=== PATIENT | female | born 2000 | race Caucasian/White ===

== ENCOUNTER 2023-12-07 11:05 | Emergency (ER) | payer SELFPAY ==
[2023-12-07 11:11] VITALS: BP 137/75; PULSE 125; RESP 18; TEMP 37; O2SAT 100
--- NOTE | 2023-12-07 11:44 | ED.DIZZY ---
HPI - Dizziness General Chief Complaint: Dizziness Stated Complaint: dizzy/blurry eyes/chest hurting Time Seen by Provider: 12/07/23 11:09 Source: patient Mode of arrival: ambulatory Limitations: no limitations History of Present Illness HPI Narrative: Patient is a 22-year-old female who presents with 4 days of worsening dizziness, blurred vision. Patient states she was at work when symptoms started. Does have a history of anxiety but states this is not help her typical anxiety or anxiety attacks feel. Patient also reports chest tightness started last night and still present this morning but has lessened. Denies having any episodes of hyperventilation or syncope. Denies any numbness, tingling or weakness to extremities. Has not taken anything for symptoms. Does also report having sore throat last night but has resolved today. Related Data Home Medications Medication Instructions Recorded Confirmed hydroxyzine HCl 10 mg tablet 10 mg PO Q6H PRN Anxiety 12/07/23 12/07/23 sertraline 25 mg tablet 25 mg PO DAILY 12/07/23 12/07/23 Allergies Allergy/AdvReac Type Severity Reaction Status Date / Time No Known Allergies Allergy Unknown Verified 12/07/23 11:50 Review of Systems Review of Systems: All systems reviewed & are unremarkable except as noted in HPI and below Constitutional: Constitutional: Denies body ache(s), Denies chills, Denies fatigue, Denies fever(s), Denies headache(s), Denies malaise and Denies weakness Eyes: Eyes: Denies blurry vision, Denies irritation and Denies loss of vision ENT: Denies otalgia, Denies headache(s), Denies nasal discharge, Denies sinus pain and Denies sore throat Cardiovascular: Cardiovascular: Reports chest pain, Denies irregular heart rhythm and Denies dyspnea Respiratory: Respiratory: Denies dyspnea Gastrointestinal: Gastrointestinal: Denies abdominal pain, Denies melena, Denies hematochezia, Denies diarrhea, Denies nausea and Denies vomiting Musculoskeletal: Musculoskeletal: Denies back pain, Denies myalgias and Denies arthralgias Integumentary/Breasts: Skin/Breast: Denies pruritus and Denies rash Neurologic: Reports dizziness, Denies headache(s), Denies loss of vision and Denies weakness Psychiatric: Psychiatric: Reports no additional psychiatric complaints Endocrine: Endocrine: Denies fatigue PMFSH Comments At time of signature, agree with nursing past medical, surgical, social and family history. There is no relevant family history pertinent to the presenting complaint. Exam Const: General: cooperative, healthy appearing, comfortable, no acute distress and well nourished Nutritional Appearance: well nourished Orientation/consciousness: patient oriented x3 Limitations: no limitations HENMT: Head: normal to inspection, normocephalic and atraumatic Ears: hearing grossly normal bilaterally, external ears normal, TM's normal bilaterally and EAC's normal Face/Nose/Sinus: Normal external nose present, normal facial exam and face symmetric Face and sinus: normal facial exam and face symmetric Mouth: Yes Normal oral and palatal mucosa present, Yes lip normal, Yes tongue normal, Yes Normal salivary glands and ducts present, Yes oropharynx normal and Yes moist mucous membranes Teeth and gingiva: dentition normal Throat: posterior oropharynx normal, tonsils normal and uvula midline Eyes: General: appearance normal, both eyes and all related structures Alignment and Position: alignment normal and position normal Periorbital: periorbital findings normal Eyelids: eyelids normal Pupils: Equal, round and reactive pupils present EOM: EOMs intact bilaterally Neck: Neck: normal visual inspection, full ROM and supple Chest: Chest palpation & inspection: normal inspection of the chest Resp: Effort & Inspection: normal respiratory effort and able to speak in complete sentences Auscultation: clear to auscultation bilaterally, no crackles, no rales, no rhonchi and no wheezes Cardio:
== END 2023-12-07 11:50 | disposition short-term general hospital (02) ==
PROVIDERS: Emergency Provider Nurse Practitioner Family
DX: R42 Dizziness and giddiness (principal); R07.89 Other chest pain; H53.8 Other visual disturbances; F41.9 Anxiety disorder, unspecified; F32.A Depression, unspecified
CPT/HCPCS: 99213; G0463

== ENCOUNTER 2024-01-23 08:38 | Emergency (ER) | payer MEDICAID, SELFPAY ==
[2024-01-23 08:42] VITALS: BP 139/75; PULSE 109; RESP 18; TEMP 36.6; O2SAT 99
--- NOTE | 2024-01-23 08:51 | ED.FEMALEGU ---
HPI - Female Genitourinary General Chief complaint: Unspecified Stated complaint: cramping / spotting/ Time Seen by Provider: 01/23/24 08:53 Source: patient, RN notes reviewed and old records reviewed Mode of arrival: ambulatory Limitations: no limitations History of Present Illness HPI Narrative: 23 year old female who presents to [facility] with complaint of having normal period on January 14 lasting 4 days then started to have cramping and spotting again on the which continues.. Patient reports that she does not have a PCP or has never seen an [employer] physician. Patient reports that she has never had any problems with her periods before is regular, states has never been sexually active. Patient does report some lower back pain and some lower abdominal cramping, no McBurney point tenderness noted on examination. Patient denies any nausea or vomiting or episodes of diarrhea, denies any fevers, chills or sweats. Patient reports that she took dose of Ibuprofen on the only for her discomfort. Patient voices history of anxiety and depression and saw provider at [facility] in [place] was put on Sertraline which she states she has not taken routinely with last use at least a month ago, takes hydroxyzine for her anxiety episodes as needed. MD elicited complaint: other (cramping and spotting) Onset (ago): day(s) (day3 of symptoms) Location of symptoms: vaginal and other (lower abdominal cramping) Severity scale (1-10): 3 Quality of pain: cramping Vaginal bleeding: other (spotting bright red) Treatment prior to arrival: NSAIDs (X1) Sexual activity: No Date of Last Menstrual Period: 01/15/24 Related Data Home Medications Medication Instructions Recorded Confirmed hydroxyzine HCl 10 mg tablet 10 mg PO Q6H PRN Anxiety 12/07/23 01/23/24 sertraline 25 mg tablet 25 mg PO DAILY 12/07/23 01/23/24 Allergies Allergy/AdvReac Type Severity Reaction Status Date / Time No Known Allergies Allergy Unknown Verified 12/07/23 11:50 Review of Systems Review of Systems: CONSTITUTIONAL: Denies fever, chills, or sweats. CARDIOVASCULAR: Denies chest pain, palpitations, or edema. RESPIRATORY: Denies cough or dyspnea. GASTROINTESTINAL: Reports lower abdominal cramping,no nausea, vomiting, or diarrhea. GENITOURINARY: Reports no dysuria, frequency, urgency. Denies flank pain or hematuria. reports menstrual cramping with some vaginal spotting this day 3 of symptoms reports scant amounts SKIN: Denies rash or itching. MUSCULOSKELETAL: Reports lower back pain or myalgia. Denies CVA tenderness NEUROLOGIC: Denies headache All systems reviewed & are unremarkable except as noted in HPI and below PMFSH Past Medical History Medical History (Updated 01/23/24 @ 09:38 by Yesenia Carlisle NP) Anxiety Depression Social History Social History (Updated 01/23/24 @ 09:41 by Yesenia Carlisle NP) Smoking status: Never smoker Alcohol intake: current Alcohol use details: rare social Substance use type: does not use Living arrangements: with family Gender identity (if verbalized by the patient): Female Comments At time of signature, agree with nursing past medical, surgical, social and family history. There is no relevant family history pertinent to the presenting complaint Exam Narrative: GENERAL: Well-appearing, well-nourished, and in no acute distress. HEAD: Normocephalic, atraumatic. NECK: Supple.no lymphadenopathy CHEST: Clear to auscultation. No respiratory distress. SAO2 99% on room air HEART: Regular rate and rhythm. No murmur heard. Normal peripheral pulses. ABDOMEN: Soft, tender in lower abdomen described as cramping, No McBurney point tenderness, nondistended, normal active bowel sounds. No CVA tenderness, denies burning or frequency of urination. EXTREMITIES: Normal range of motion. No edema. SKIN: Warm, dry, no rash. NEURO: No focal deficits. Alert and oriented x3. Course Course Emergency Course: Patient is aware of
== END 2024-01-23 09:31 | disposition home or self-care (01) ==
PROVIDERS: Emergency Provider Registered Nurse
DX: N93.9 Abnormal uterine and vaginal bleeding, unspecified (principal); N94.6 Dysmenorrhea, unspecified; F41.9 Anxiety disorder, unspecified; F32.A Depression, unspecified
CPT/HCPCS: 81003; 99211; 99212; G0463

== ENCOUNTER 2024-02-10 10:02 | Outpatient (CLI) | payer MEDICAID, SELFPAY ==
--- NOTE | ~2024-02-10 | US_ITS ---
EXAMINATION: US pelvic complete DATE: 02/10/2024 10:21 INDICATION: Right lower quadrant pain TECHNIQUE: Multiple transabdominal outside sonographic images of the pelvis were obtained. COMPARISON: None. FINDINGS: The uterus measures 6.4 x 3.9 x 5.0 cm. The endometrial complex measures 9 mm in thickness. The righ t ovary measures 3.3 x 2.0 x 2.8 cm. The left ovary measures 2.6 x 2.0 x 2.5 cm. Vascular flow identi fied at both ovaries on color Doppler. There is no free fluid in the pelvis. IMPRESSION: 1. Normal pelvic ultrasound. Reviewed, dictated and finalized at location A.
== END 2024-02-10 10:03 ==
LOC: MICIMG 10:03
PROVIDERS: PCP Nurse Practitioner Women's Health; Visit Provider Nurse Practitioner Women's Health
DX: R10.31 Right lower quadrant pain (principal); N93.8 Other specified abnormal uterine and vaginal bleeding; R10.2 Pelvic and perineal pain
CPT/HCPCS: 76856

== ENCOUNTER 2024-08-20 11:50 | Emergency (ER) | payer OTHER, SELFPAY ==
[2024-08-20 11:54] VITALS: BP 121/79; PULSE 94; RESP 20; TEMP 36.9; O2SAT 100
[2024-08-20 12:17] LABS: EDCOVIDSCREEN Positive (Negative); EDINFLUASCREEN Negative (Negative); EDINFLUBSCREEN Negative (Negative)
--- NOTE | 2024-08-20 12:24 | ED_ITS ---
HPI - General Adult General Chief complaint: Upper Respiratory Infection Stated complaint: poss covid Time Seen by Provider: 08/20/24 12:10 Source: patient, RN notes reviewed and old records reviewed Mode of arrival: ambulatory Limitations: no limitations History of Present Illness HPI narrative: 23 year old female who presents to [facility] care with complaints of body aches, chills and sweats and some cough for the past 2 days, Patient reports that she awoke today with some left ear pain. Patient reports that she has not taken anything for her symptoms. She states that brother had COVID within the past 2 weeks. MD complaint: body aches, chills, ear pain Onset (ago): day(s) (2) Severity scale (1-10): 2 Quality: aching Treatments prior to arrival: none Related Data Home Medications ?Medication ?Instructions ?Recorded ?Confirmed ?Last Taken ?Type drospirenone 3 mg-ethinyl tablet 08/20/24 Unknown History estradiol 0.02 mg tablet (Lo-Zumandimine (28)) Allergies Allergy/AdvReac Type Severity Reaction Status Date / Time No Known Allergies Allergy Unknown Verified 08/20/24 12:00 Review of Systems Review of Systems: CONSTITUTIONAL: Reports malaise, chills, sweats, reports unknown if fever. EYES: Denies visual changes, redness, or discharge. ENT: Reports rhinorrhea, congestion, no sinus pain, left otalgia and no sore throat. CARDIOVASCULAR: Denies chest pain, palpitations, or edema. RESPIRATORY: Reports cough.? Denies dyspnea. GASTROINTESTINAL: Denies abdominal pain, nausea, vomiting, diarrhea SKIN: Denies rash or itching. MUSCULOSKELETAL: Reports myalgia. NEUROLOGIC: Denies headache. All systems reviewed & are unremarkable except as noted in HPI and below PMFSH Past Medical History Medical History Depression Anxiety Social History Social History Smoking status: Never smoker Alcohol intake: current Alcohol use details: rare social Substance use type: does not use Living arrangements: with family Gender identity (if verbalized by the patient): Female Comments At time of signature, agree with nursing past medical, surgical, social and family history. There is no relevant family history pertinent to the presenting complaint Exam Narrative: GENERAL: Well-appearing, well-nourished, and in no acute distress. HEAD: Normocephalic EYES: PERRLA, conjunctivae clear ENT: Nares clear, turbinates edematous and erythematous, clear discharge. Mucous membranes moist. TM pearly figueroa with dull light reflex bilaterally; no tragal tenderness. Oropharynx erythematous without lesions. Tonsils not enlarged and without exudate, no drooling, no hoarseness, no trismus, uvula midline.scant post nasal drainage NECK: Supple. No lymphadenopathy CHEST: Clear to auscultation, breath sounds equal. No wheezing, rhonchi, rales, or stridor. No respiratory distress, speaks in full sentences.cough, SAO2 100% on room air HEART: Regular rate and rhythm. No murmur heard. SKIN: Warm, dry, no rash. NEURO: Alert and oriented x3. PSYCH: Normal mood and affect Course Course Emergency Course: Patient is aware of diagnosis, understands and agrees to treatment plan.? Anticipatory guidance given.? Patient agrees to follow-up as directed and is a landry of reasons to seek care at the emergency department. Portions of this record may have been created with voice recognition software Level of Care: Express Care Visit Vital Signs Vital signs: Vital Signs Temperature 36.9 C 08/20/24 11:54 Pulse Rate 94 08/20/24 11:54 Respiratory Rate 08/20/24 11:54 Blood Pressure 121/79 08/20/24 11:54 Pulse Oximetry 100 08/20/24 11:54 Oxygen Delivery Room Air 08/20/24 11:54 Temperature 36.9 C 08/20/24 11:54 Pulse Rate 94 08/20/24 11:54 Respiratory Rate 08/20/24 11:54 Blood Pressure 121/79 08/20/24 11:54 Pulse Oximetry 100 08/20/24 11:54 Oxygen Delivery Room Air 08/20/24 11:54 Reviewed Medical Decision Making Differential Diagnosis Differential Diagnosis: URI, otitis media, viral infection, COVID, influenza Medical Records Medical records reviewed: Yes I reviewed the external patient's medical records. Vital Signs Vital Signs: Vital Signs Temperature 36.9 C 08/20/24 11:54 Pulse Rate 94 08/20/24 11:54 Respiratory Rate 08/20/24 11:54 Blood Pressure 121/79 08/20/24 11:54 Pulse Oximetry 100 08/20/24 11:54 Oxygen Delivery Room Air 08/20/24 11:54 Temperature 36.9 C 08/20/24 11:54 Pulse Rate 94 08/20/24 11:54 Respiratory Rate 20 08/20/24 11:54 Blood Pressure 121/79 08/20/24 11:54 Pulse Oximetry 100 08/20/24 11:54 Oxygen Delivery Room Air 08/20/24 11:54 reviewed Lab Data Lab results reviewed: Yes I reviewed the patient's lab results. Lab results narrative: Covid antigen positive, Influenza A negative, Influenza B negative Labs: Lab Results 08/20/24 Range/Units 12:15 POC Influenza A Ag Negative (Negative) POC Influenza B Ag Negative (Negative) POC SARS CoV-2 Ag Positive (Negative) Critical Care Time Critical Care Time Critical Care Time: No Discharge Plan Discharge Clinical Impression: COVID-19 Patient Disposition: Home, Self-Care Condition: Stable Instructions: Antibiotic Form Additional Instructions: Increase fluids especially juices and water [id number] cough and cold medicine of your choice for your symptoms Zyrtec Claritin or Elizabeth daily for any sinus congestion and drainage Tylenol and ibuprofen for any fever pain Recommend Robitussin or Delsym cough syrup heat to the face 20-30 minutes 4-6 times a day for pain Salt water gargles, throat lozenges or throat sprays as desired Must quarantine COVID-19 DISCHARGE The following recommendations have been made by the CDC and local Health Departments, regarding COVID-19: Those individuals with mild cases of COVID-19 can generally be discontinued from isolation, 5 days AFTER the onset of symptoms AND the resolution of fever for 24hrs (without the use of fever-reducing medications) Those individuals who were asymptomatic, and tested positive, are discontinued from isolation 10 days AFTER their first positive COVID-19 test Those individuals with SEVERE to CRITICAL illness or immunocompromised diseases may require up to 20 days of home isolation or hospitalization Majority of mild to moderate cases can be treated at home, without hospitalization or prescription medications You do not need a negative test result to return to work/school, assuming the above recommendations have been met and you are not symptomatic. At this time, return to work/school notes will not be provided. Guidelines from the local Health Department, CDC, and workplace are expected to be followed. All individuals in the household need to remained quarantined for up to 14 days if asymptomatic OR 10 days after the start of symptoms. Everyone in the home DOES NOT require testing, they are presumed positive and should quarantine as directed. Treating symptoms for mild to moderate cases may include: Tylenol, Flonase/nasal spray, OTC cold/flu medications recommended from your provider or any necessary prescription medications provided at your visit or from your PCP IF YOU TESTED NEGATIVE If you are symptomatic with reason to believe you have COVID-19, there is a high possibility your rapid test may not have detected the virus. Rapid testing is dependent on timing and viral load and may have a false-nega tive reading You should follow appropriate guidelines regarding quarantine, hand washing, mask wearing, and social distancing You may be sent for PCR testing as an outpatient to the [place] testing site Common Adult Symptoms: Fever/chills Cough Shortness of breath Fatigue, muscle aches Headache Loss of taste/smell Sore throat, congestion, runny nose GI symptoms (nausea, vomiting, diarrhea) Common Pediatric Symptoms Cough Fever GI symptoms (diarrhea, upset stomach, nausea, vomiting) Symptoms may differ in severity however, most cases do not require hospitalization. WHEN TO SEEK ER EVALUATION/TREATMENT Severe/persistent shortness of breath or difficulty breathing Elevated, persistent fevers without resolution with fever-reducing medications Chest pain Extreme fatigue/lethargy Complications of pre-existing disease Patient Language: Citizen Of [place] Prescriptions: No Action drospirenone-ethinyl estradiol [Lo-Zumandimine (28)] 3-0.02 mg tablet Follow-up/Referrals: Moises,SEGUNDO Gregg [Primary Care Provider] - Stand Alone Forms: Work/School Release IP Time of Disposition: 12:28 Quality Kenney Coma Scale Eyes: Open Verbal: Oriented and Alert Motor: Follows Commands Kenney Coma Total Score: 15
--- OUTSIDE RECORDS SUMMARY | 2024-08-22 18:01 | XMS_ITS | Patient Health Summary ---
Author Organization [facility] [employer] Address [address] [place] [address] Care Team Providers Care Process Manufacturing Engineer Name Role Phone Unavailable Primary Care Provider Unavailabl e Note from [facility],non-owned Affiliates and Associated Physician Practices is amultiple site organization consisting of ambulatory clinics and hospital sitesin [place], [place] and [place]. This disclosure is being madepursuant to the Care Everywhere program and may not contain all information available regarding this patient. Last updated 18.[facility] [employer] Allergies No known active allergies Medications * Be aware that medications may not be up to date on this document. Alwaysverify current medications with the patient. * ibuprofen (MOTRIN) 200 MG tablet Take 400 mg by mouth every 6 hours as needed for Pain * acetaminophen (TYLENOL) 325 MG tablet Take 650 mg by mouth every 4 hours as needed for Fever or Pain Maximum allowable Acetaminophen amount = 4 Grams (4000 mg) / 24 hours. * naproxen (NAPROSYN) 375 MG tablet(Started 06/13/2017) Take 1 tablet by mouth 2 times daily 1 refill remaining * melatonin 3 MG tablet(Started 06/13/2017) Take 1 tablet by mouth at bedtime 2 refills remaining Active Problems Problem Noted Date Diagnosed Date Migraine 06/13/2017 Tension type headache 06/13/2017 Social History Tobacco Use Types Packs/Day Years Used Date Smoking Tobacco: Never Assessed Sex and Gender Information Value Date Recorded Sex Assigned at Not on file Gender Identity Not on file Sexual Orientation Not on file Last Filed Vital Signs Vital Sign Reading Time Taken Comments Blood Pressure 108/64 06/13/2017 12:41 PM SCALE RECLAMATION TENDER Pulse 92 05/18/2017 12:44 PM CDT per pcp Temperature 36.4 ??C (97.5 ??F) 05/18/2017 12:44 PM C DT per pcp Respiratory Rate 16 05/18/2017 12:44 PM CDT per pcp Oxygen Saturation - - Inhaled Oxygen Concentration - - Weight 54.8 kg (120 lb 13 oz) 06/13/2017 12:41 P M SCALE RECLAMATION TENDER Height 155.6 cm (5' 1.26 ) 06/13/2017 12:[address] Body Mass Index 22.63 06/13/2017 12:41 PM SCALE RECLAMATION TENDER
--- OUTSIDE RECORDS SUMMARY | 2024-08-22 18:01 | XMS_ITS | Clinical Summary ---
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, fatigue and migrains Plan of Treatment - Clinical summary provided to patient - Last Documented On 05/18/2017 9:42AM ; [facility] Assessments Includes: Assessments from this encounter Findings - Cephalgia, headache - Last Documented On 05/18/2017 9:42AM ; [facility] Medical Equipment - Implanted Devices Includes: Current Devices No Medical Equipment Recorded Medications Includes: Medications discussed during this encounter and other current Medications No Medications Taken Medications Administered Includes: Administered Medications from this encounter No Administered Medications Recorded Vital Signs Includes: Vital Signs from this encounter Vital Name 05/18/2017 09:07A Blood Pressure Sitting (mmHg) 120/80 Height (in) 61 Weight (lb) 119 Body Mass Index (kg/m2) 22.5 BMI Percentile (percentile) 78 Body Surface Area (m2) 1.5 Last Documented: On 05/18/2017 9:11AM ; [facility] Results Includes: Results discussed during this encounter No Results Recorded For Specified Dates History of Present Illness Includes: History of Present Illness from this encounter REINA HAMILTON is a 16 year old female. This patient presents with menstrual complaints. See detail below. Pt reports monthly cycles lasting up to 5 days, with days 1-4 changing 5 sanitary pads/24 hours for comfort only. Pt denies missing school or ADL d/t menses. - Medication list reviewed - PRIMARY CARE PROVIDER : Dr. Samy Velez Pt reports headache x 2 weeks, missing school, no relief w/OTC rx. Pt denies any neurological aura associated with headache, and was evaluted in [facility] ER 05/13 for tension headache and syncope. Pt's aunt suggested pt come in for control to manage menses. Social History Description Last Updated Smoking status : Never smoker 05/18/2017 Last Documented On 7 9:42AM ; [facility] Medical History Includes: Medical History addressed during this encounter Description Last Updated LMP: 05/09/2017 05/18/2017 Last Documented On 7 9:42AM ; [facility] Family History Includes: Family History addressed during this encounter Description Last Updated Family history of diabetes mellitus mate rnal grandmother 05/18/2017 Last Documented On 7 9:42AM ; [facility] Review of Systems Includes: Review of Systems from this encounter No Review of Systems Recorded Mental Status Includes: Mental Status from this encounter No Mental Status Recorded Functional Status Includes: Functional Status from this encounter No Functional Status Recorded Physical Exam Includes: Physical Exam from this encounter Allergies Includes: Active Allergies No Known Allergies Encounters Encounter Provider Location Date Check-In Time Check-Out Time Diagnosis NEW PREMIUM CARD CANCELLATION CLERK EXAM COMFORT SAM RN WHNP [facility] CONTINUOUS MINING OPERATOR 05/18/20 17 8:24AM 9:29AM Cephalgia, Headache Clinical Notes Includes: Clinical Notes from this encounter No Clinical Notes Recorded
--- OUTSIDE RECORDS SUMMARY | 2024-08-22 18:01 | XMS_ITS | Clinical Summary ---
Author Organization [facility] Address [address] [place] [address] Phone Care Team Providers Care Wrinkle Chaser Name Role Phone Sarabjit Foster MD Unavailable Marysol De Leon PAC Primary Care Pro vider Allergies No known active allergies Medications Vestura 3-0.02 MG Tablet Take 1 Tablet by mouth daily. 02/07/2024 Active escitalopram (LEXAPRO) 10 MG Tablet TAKE 1 TABLET BY MOUTH EVERY DAY 90 Tablet 07/02/2024 Active Active Problems No known active problems Encounters Date Type Department Care Team Description 07/02/2024 Refill [facility] - Internal Medicine [facility] [address] [place] [address] Marysol De Leon, PAC Medication Refill from Last 3 Months Family History Medical History Relation Name Comments No Known Problems Brother Alcohol Abuse Father No Known Problems Maternal Grandfather No Known Problems Maternal Grandmother Other-comment Mother MVA No Known Problems Paternal Grandfather No Known Problems Paternal Grandmother Relation Name Status Comments Brother Alive Father Maternal Grandfather Alive Maternal Grandmother Mother Paternal Grandfather Paternal Grandmother Social History Tobacco Use Types Packs/Day Years Used Date Smoking Tobacco: Never Smokeless Tobacco: Never Tobacco Cessation:Counseling Given: No Alcohol Use Standard Drinks/Week Comments No 0 (1 standard drink = 0.6 oz pur e alcohol) [facility] Utilities Answer Date Recorded In the past 12 months has th e electric, gas, oil, or water [email or web address] threatened to shut off services in your home? No 04/05/2024 Social Connection and Isolat ion Panel [NHANES] Answer Date Recorded In a typical week, how many times do you talk on the phone with family, friends, or neighbors? More than three times a week 04/05/2024 How often do you get togethe r with friends or relatives? Once a week 04/05/2024 How often do you attend chur ch or advent services? Never 04/05/2024 Do you belong to any clubs o r organizations such as protestant groups, unions, fraternal or athletic groups, or school groups? No 04/05/2024 How often do you attend meet ings of the clubs or organizations you belong to? Never 04/05/2024 Are you , , di vorced, , never , or living with a partner? Never 04/05/2024 AUDIT-C Answer Date Recorded Q1: How often do you have a drink containing alc ohol? Monthly or less 04/05/2024 Q2: How many drinks containi ng alcohol do you have on a typical day when you are drinking? 1 or 2 04/05/2024 Q3: How often do you have si x or more drinks on one occasion? Never 04/05/2024 Overall Financial Resource Strain (CARDIA) Answe r Date Recorded How hard is it for you to pa y for the very basics like food, housing, medical care, and heating? Not very hard 04/05/2024 PHQ-2 Answer Date Recorded Total Score - Questions 1-9 3 12/2023 [facility] - Occupational Stress Questionnaire Answer Date Recorded Do you feel stress - tense, restless, nervous, or anxious, or unable to sleep at night because your mind is troubled all the time - these days? To some extent 04/05/2024 Exercise Vital Sign Answer Date Recorde d On average, how many days pe r week do you engage in moderate to strenuous exercise (like a brisk walk)? 6 days Minutes of Exercise per Session Not on file 04/05/2024 Hunger Vital Sign Answer Date Recorded Within the past 12 months, y ou worried that your food would run out before you got the money to buy more. Never true 04/05/20 24 Within the past 12 months, t he food you bought just didn't last and you didn't have money to get more. Never true 04/05/2024 PRAPARE - Transportation Answer Date Re corded In the past 12 months, has l ack of transportation kept you from medical appointments or from getting medications? No 12/2023 In the past 12 months, has l ack of transportation kept you from meetings, work, or from getting things needed for daily living? No 04/05/2024 Housing Stability Vital Sign Answer Adama e Recorded In the last 12 months, was t here a time when you were not able to pay the mortgage or rent on time? No 04/05/2024 In the past 12 months, how m any times have you moved where you were living? 0 04/05/2024 At any time in the past 12 m [facility], were you homeless or living in a [place] health care facility (including now)? No 04/05/2024 Sexually Active Control Partners Comments Yes Male Comments No Sex and Gender Information Value Date Recorded Sex Assigned at Not on file Legal Sex Female 10:43 PM CDT Gender Identity Not on file Sexual Orientation Not on file Last Filed Vital Signs Vital Sign Reading Time Taken Comments Blood Pressure 142/74 04/09/2024 12:55 PM CDT Pulse 102 04/09/2024 12:55 PM CDT Temperature 36.7 ??C (98 ??F) 04/09/2024 12:55 PM CDT Respiratory Rate 12 04/05/2024 9:35 AM CDT Oxygen Saturation 98% 04/09/2024 12:55 PM CDT Inhaled Oxygen Concentration - - Weight 60.3 kg (133 lb) 04/09/2024 12:55 PM CDT Height 154.9 cm (5' 1 ) 04/09/2024 12:55 PM CDT Body Mass Index 25.13 04/09/2024 12:55 PM CDT Plan of Treatment Health Maintenance Due Date Last Done Comments Hepatitis C Virus (HCV) Screening 2002 Influenza Immunization (#1) 03/31/202405/31, 06/29/2020, 05/15/2019, Additional history exists SARS-COV-2 Immunization ( season) 2024 07/07/2021, 01/05/2021, 12/15/2020 Respiratory Syncytial Virus (RSV) Immunization (Adult) (1 - 1-dose 75+ series) 2077 Hepatitis B Immunization Completed 003, 04/24/2003, 02/21/2003, Additional history exists Pneumococcal Immunization Combined Aged Out 05/06/2004, 07/01/2003, 04/24/2003, Additional history exists No longer eligible based on patient's age to complete this topic Measles Mumps Rubella (MMR) Immunization Discontinued 03/21/2007, 02/12/2004 Polio (IPV) Immunization Discontinued 007, 07/01/2003, 04/24/2003, Additional history exists Varicella Immunization Discontinued 03/12/2008, 2003 Hepatitis A Immunization Discontinued 02/05/2010, 02/28 DTaP/Tdap/Td Immunization Discontinued 2014, 03/21/2007, 05/06/2004, Additional history exists TdaP Immunization Completed 02/02/2015 Human Papillomavirus (HPV) Immunization Completed 05/15/2019, 10/26/2015, 06/29/2015, Additional history exists Meningococcal B Immunization Completed 05/15/2019, 03/13/2019 Meningococcal Immunization (ACWY) Completed 05/15/2019, 02/02/2015 Rotavirus Immunization Aged Out No lo nger eligible based on patient's age to complete this topic Insurance MEDICAID [employer]ET[employer] [facility] MEDICAID [employer] Care Teams Wrinkle Chaser Relationship Specialty Start Date End Date Marysol De Leon PAC [address] [place] [address] PCP - General Physician Metal Products Viewer 04/05/24 Sarabjit Foster MD #[id number] [address] Consulting Physician Colon and Rectal Surgery 04/03/24
--- OUTSIDE RECORDS SUMMARY | 2024-08-22 18:01 | XMS_ITS | Referral Summary ---
Author Organization [facility] Address [address] [place] [address] Care Team Providers Care Machine Paint Mixer Name Role Phone Unavailable Primary Care Provider Unavailabl e Source Comments [facility],non-owned Affiliates and Associated Physician Practices is amultiple site organization consisting of ambulatory clinics and hospital sitesin [place], [place], [place] and [place]. This disclosure is being madepursuant to the Care Everywhere program and may not contain all information available regarding this patient. Last updated 18.[facility] Allergies No known active allergies Medications * Be aware that medications may not be up to date on this document. Alwaysverify current medications with the patient. Medication Sig Dispensed Refills Start Date End Date Status ibuprofen (MOTRIN) 200 MG tablet Take 400 mg by mouth every 6 hours as needed for Pain Active acetaminophen (TYLENOL) 325 MG tablet Take 650 mg by mouth every 4 hours as needed for Fever or Pain Maximum allowable Acetaminophen amount = 4 Grams (4000 mg) / 24 hours. Active naproxen (NAPROSYN) 375 MG tablet Take 1 tablet by mouth 2 times daily 30 tablet 1 06/13/2017 Active melatonin 3 MG tablet Take 1 tablet by mouth at bedtime 30 tablet 2 06/13/2017 Active Active Problems Problem Noted Date Diagnosed Date Migraine 06/13/2017 Tension type headache 06/13/2017 Assessment & Plan (06/13/2017 3:08 PM CHIEF GROWTH OFFICER): Jakub Stephen is a 16 y.o. female with a reported self resolved hx of seizures who comes for evaluation of headaches after a syncopal event. Pt reportedly had a syncopal event in mid April 2017 (1 month prior to encounter) and then has had a headache since. No obvious injuries were noted. She was seen at her local urgent care/ED and had head imaging, which was reported as normal (no report or imaging available to review). MALHOTRA is poorly defined but is reportedly occurring daily. Her MALHOTRA are without any migrainous features and have not responded to PRN meds however she hasn't really taken any. She initially reports having a higher intensity headache the first two weeks after the event and stayed home but since then her headaches have not impeded her daily function. On review she has significant lifestyle issues which is contributing to her headache burden including poor diet hx, poor sleep, and likely sub-optimal fluid intake. In addition she voices significant social stressors in her life. She also started drinking heavy caffeine a few weeks before the onset of her headaches. She currently has an interval URI which again is likely adding to her headache burden. Her exam was notable for sinus tenderness and enlarged tonsils, but otherwise is normal and she appears in no distress despite reporting a headache at the time of the encounter. The onset of her headache seems to coincide with a sentinal syncopal event and since then reports daily headaches. With a normal reported CT head and a normal exam there doesn't seem to be a worrisome process at hand. Concussion is unlikely but if she had one it would have been very minor. Other considerations goes to her lifestyle issues and social stressor aggravating her headaches. Plan: - Will prescribe naprosyn 375mg BID for the next 3 days, and then BID PRN - Discussed medication over use and to not take along with other NSAIDS - Lifestyle modifications: adequate sleep, hydration, no skipping meals - will prescribe Melatonin 3mg nightly - If sleep continues to be disturbed we will send her for a sleep study - Discussed addressing her stressors by following with a counselor - Will have family send us the OS CT head imaging to review - No driving for at least 6 months from the time of her last LOC - Orthostatic vitals before she leaves today - Follow up in 3-4 months, sooner if concerns arise Social History Tobacco Use Types Packs/Day Years Used Date Smoking Tobacco: Never Assessed Sex and Gender Information Value Date Recorded Sex Assigned at Not on file Gender Identity Not on file Sexual Orientation Not on file Last Filed Vital Signs Vital Sign Reading Time Taken Comments Blood Pressure 108/64 06/13/2017 12:41 PM CHIEF GROWTH OFFICER Pulse 92 05/18/2017 12:44 PM CDT per pcp Temperature 36.4 ??C (97.5 ??F) 05/18/2017 12:44 PM C DT per pcp Respiratory Rate 16 05/18/2017 12:44 PM CDT per pcp Oxygen Saturation - - Inhaled Oxygen Concentration - - Weight 54.8 kg (120 lb 13 oz) 06/13/2017 12:41 P M CHIEF GROWTH OFFICER Height 155.6 cm (5' 1.26 ) 06/13/2017 12:[address] Body Mass Index 22.63 06/13/2017 12:41 PM CHIEF GROWTH OFFICER Plan of Treatment Not on file
--- OUTSIDE RECORDS SUMMARY | 2024-08-22 18:01 | XMS_ITS ---
Author Organization [facility] Address [address] [place] [phone] Phone Care Team Providers Care Paver Operator Name Role Phone Unavailable Unavailable Unavailable Plan of Treatment Findings Encounter Date Ordered Clinical summary pro vided to patient NEW SENIOR CYTOTECHNOLOGIST EXAM with COMFORT SAM RN [facility] 05/18/2017 Last Documented On 7 9:42AM ; [facility] Assessments Includes: Assessments for all patient encounters Findings Encounter Date Cephalgia, headache NEW SENIOR CYTOTECHNOLOGIST EXAM with COMFORT RAZO RN [facility] 05/18/2017 Last Documented On 7 9:42AM ; [facility] Medical Equipment - Implanted Devices Includes: Current and historical Devices No Medical Equipment Recorded Medications Includes: Current and historical Medications No Medications Taken Medications Administered Includes: Administered Medications in patient's chart No Administered Medications Recorded Results Includes: Results from 08/22/2023 through 08/22/2024 No Results Recorded For Specified Dates History of Present Illness History of Present Illness not supported for this document type No History of Present Illness Recorded Social History Description Last Updated Smoking status : Never smoker 05/18/2017 Last Documented On 7 9:42AM ; [facility] Medical History Includes: Medical History in patient's chart Description Last Updated LMP: 05/09/2017 05/18/2017 Last Documented On 7 9:42AM ; [facility] Family History Includes: Family History in patient's chart Description Last Updated Family history of diabetes mellitus mate rnal grandmother 05/18/2017 Last Documented On 7 9:42AM ; [facility] Review of Systems Review of Systems not supported for this document type No Review of Systems Recorded Mental Status No Mental Status Recorded Functional Status No Functional Status Recorded Physical Exam Physical Exam not supported for this document type No Physical Exam Recorded Allergies Includes: Active, inactive, and resolved Allergies No Known Allergies Clinical Notes Includes: Signed Clinical Notes starting from 08/19/2022 No Clinical Notes Recorded
--- OUTSIDE RECORDS SUMMARY | 2024-08-22 18:01 | XMS_ITS ---
Care Plan - [facility] Created on: August 22, 2024 DEMETRIA HAMILTON : 2000 Sex: Female Author Organization [facility] Address [address] [place] [address] Phone Care Team Providers Care Residence Life Coordinator Name Role Phone Unavailable Unavailable Unavailable
--- OUTSIDE RECORDS SUMMARY | 2024-08-22 18:01 | XMS_ITS | Clinical Summary ---
Author Organization [facility] Address [address] [place] [address] Care Team Providers Care Digital Product Specialist Name Role Phone Unavailable Primary Care Provider Unavailabl e Source Comments [facility],non-owned Affiliates and Associated Physician Practices is amultiple site organization consisting of ambulatory clinics and hospital sitesin [place], [place], [place] and [place]. This disclosure is being madepursuant to the Care Everywhere program and may not contain all information available regarding this patient. Last updated 18.[facility] Allergies No known active allergies Medications * [...] 06/13/2017 Assessment & Plan (06/13/2017 3:08 PM SKATING RINK MANAGER): Jakub Stephen is a 16 y.o. female [...] in 3-4 months, sooner if concerns arise Family History Medical History Relation Name Comments Migraine Maternal Aunt Relation Name Status Comments Maternal Aunt Social History Tobacco Use Types Packs/Day Years Used Date Smoking Tobacco: Never Assessed Sex and Gender Information Value Date Recorded Sex Assigned at Not on file Gender Identity Not on file Sexual Orientation Not on file Last Filed Vital Signs Vital Sign Reading Time Taken Comments Blood Pressure 108/64 06/13/2017 12:41 PM SKATING RINK MANAGER Pulse 92 05/18/2017 12:44 PM CDT per pcp Temperature 36.4 ??C (97.5 ??F) 05/18/2017 12:44 PM C DT per pcp Respiratory Rate 16 05/18/2017 12:44 PM CDT per pcp Oxygen Saturation - - Inhaled Oxygen Concentration - - Weight 54.8 kg (120 lb 13 oz) 06/13/2017 12:41 P M SKATING RINK MANAGER Height 155.6 cm (5' 1.26 ) 06/13/2017 12:[address] Body Mass Index 22.63 06/13/2017 12:41 PM SKATING RINK MANAGER Plan of Treatment Health Maintenance Due Date Last Done Comments PAP SMEAR 2002 HIV SCREENING 2017 HPV VACCINE (1 - 3-dose series) 2017 CHLAMYDIA/GONORRHEA SCREENING 2018 MENINGOCOCCAL (Group B) VACC INE (1 of 2 - Standard) 2018 HEPATITIS C SCREENING 12/18/2020 DTAP/TDAP/TD VACCINES (1 - Tdap) 2021 HEPATITIS B VACCINE (1 of 3 - 19+ 3-dose series) 2021 COVID-19 VACCINE (1 - 2023-2 5 season) 2024 INFLUENZA VACCINE (#1) 2024 DEPRESSION SCREENING 07/31/2024 ZOSTER VACCINE (1 of 2) 2052 HIB VACCINE Aged Out No longer eligi ble based on patient's age to complete this topic MENINGOCOCCAL VACCINE Aged Out No dylan liz eligible based on patient's age to complete this topic PNEUMOCOCCAL VACCINE Aged Out No long er eligible based on patient's age to complete this topic
--- OUTSIDE RECORDS SUMMARY | 2024-08-22 18:03 | XMS_ITS ---
Author Organization [facility] Address [address] [place] [phone] Phone Care Team Providers Care Drier Feeder Name Role Phone Unavailable Unavailable Unavailable Plan of Treatment Findings Encounter Date Ordered Clinical summary pro vided to patient NEW WASTE HAND EXAM with COMFORT SAM RN [facility] 05/18/2017 Last Documented On 7 9:42AM ; [facility] Assessments Includes: Assessments for all patient encounters Findings Encounter Date Cephalgia, headache NEW WASTE HAND EXAM with COMFORT RAZO RN [facility] 05/18/2017 Last Documented On 7 9:42AM ; [facility] Medical Equipment - Implanted Devices Includes: Current [...] 05/18/2017 Last Documented On 7 9:42AM ; [facility] Medical History Includes: Medical History in patient's chart Description Last Updated LMP: 05/09/2017 05/18/2017 Last Documented On 7 9:42AM ; [facility] Family History Includes: Family History in patient's chart Description Last Updated Family history of diabetes mellitus mate rnal grandmother 05/18/2017 Last Documented On 7 9:42AM ; [facility] Review of Systems Review of Systems not [...]
--- OUTSIDE RECORDS SUMMARY | 2024-08-22 18:03 | XMS_ITS ---
Care Plan - [facility] Created on: August 22, 2024 DEMETRIA HAMILTON : 2000 Sex: Female Author Organization [facility] Address [address] [place] [address] Phone Care Team Providers Care Hearing Consultant Name Role Phone Unavailable Unavailable Unavailable
--- OUTSIDE RECORDS SUMMARY | 2024-08-22 18:03 | XMS_ITS | Clinical Summary ---
Author Organization [facility] Address [address] [place] [phone] Phone Care Team Providers Care Mill Tender Name Role Phone Unavailable Unavailable Unavailable Reason for Visit and Chief Complaint gynecologic annual exam, Pt presents for problem in addition to annual exam - The Chief Complaint is: NEW-APPLICATION DEVELOPER MANAGER ~c/o heavy periods, fatigue and migrains Plan of Treatment - Clinical summary provided to patient - Last Documented On 05/18/2017 9:42AM ; [facility] Assessments Includes: Assessments from this encounter Findings - Cephalgia, headache - Last Documented On 05/18/2017 9:42AM ; [facility] Medical Equipment - Implanted Devices Includes: Current [...] 1.5 Last Documented: On 05/18/2017 9:11AM ; [facility] Results Includes: Results discussed during this encounter [...] associated with headache, and was evaluted in [facility] ER 05/13 for tension headache and syncope. Pt's aunt suggested pt come in for control to manage menses. Social History Description Last Updated Smoking status : Never smoker 05/18/2017 Last Documented On 7 9:42AM ; [facility] Medical History Includes: Medical History addressed during this encounter Description Last Updated LMP: 05/09/2017 05/18/2017 Last Documented On 7 9:42AM ; [facility] Family History Includes: Family History addressed during this encounter Description Last Updated Family history of diabetes mellitus mate rnal grandmother 05/18/2017 Last Documented On 7 9:42AM ; [facility] Review of Systems Includes: Review of Systems [...] Date Check-In Time Check-Out Time Diagnosis NEW APPLICATION DEVELOPER MANAGER EXAM COMFORT SAM RN [facility] RISK AND INSURANCE CONSULTANT 05/18/20 17 8:24AM 9:29AM Cephalgia, Headache Clinical Notes Includes: Clinical Notes from this encounter No Clinical Notes Recorded
== END 2024-08-20 12:32 | disposition home or self-care (01) ==
PROVIDERS: Emergency Provider Registered Nurse; PCP Physician Assistant
DX: U07.1 COVID-19 (principal)
CPT/HCPCS: 87426; 87804; 99212; G0463

== ENCOUNTER 2025-03-11 10:28 | Emergency (ER) | payer SELFPAY ==
[2025-03-11 10:33] VITALS: BP 145/80; PULSE 102; RESP 16; TEMP 37; O2SAT 99
--- NOTE | 2025-03-11 10:35 | ED_ITS ---
HPI - Headache General Chief Complaint: Headache Stated Complaint: headache x 5 days Time Seen by Provider: 03/11/25 10:35 Source: patient Mode of arrival: ambulatory Limitations: no limitations History of Present Illness HPI Narrative: 24 y/o female presented for c/o headache. Onset 1.5 weeks, unrelieved with Excedrin. Endorses associated dizziness when walking, fatigue, nausea and vomiting intermittently. Pt reported to nurse chest pain yesterday; today some chest pressure. Denies nasal congestion or sinus pressure. Says headache pain is actually getting worse since onset. Currently rates headache pain 6/10, worse at times. Related Data Home Medications ?Medication ?Instructions ?Recorded ?Confirmed ?Last Taken ?Type No Home Medications 03/11/25 03/11/25 Unknown History Allergies Allergy/AdvReac Type Severity Reaction Status Date / Time No Known Allergies Allergy Unknown Verified 03/11/25 10:38 Review of Systems Review of Systems: PER HPI All systems reviewed & are unremarkable except as noted in HPI and below PMFSH Past Medical History Medical History Depression Anxiety Social History Social History Smoking status: Never smoker Alcohol intake: current Alcohol use details: rare social Substance use type: does not use Living arrangements: with family Gender identity (if verbalized by the patient): Female Comments At time of signature, I have reviewed and agree with nursing past medical, surgical, social and family history unless otherwise noted. Please see nursing chart for further information. There is no relevant family history pertinent to the presenting complaint Exam Narrative: GENERAL: Well-appearing, and in no acute distress. HEAD: Normocephalic, atraumatic. EYES: EOMI. No redness or drainage. Conjunctivae normal. ENT: Mucous membranes pink and moist. No rhinorrhea. TMs normal bilaterally. Throat normal. Uvula midline. NECK: Normal AROM. Supple. No lymphadenopathy. CHEST: No respiratory distress. Clear to auscultation. HEART: Regular rate and rhythm. No murmur appreciated. Normal peripheral pulses. EXTREMITIES: Normal range of motion. No edema. SKIN: Warm, dry, no rash. Capillary refill normal. Normal skin turgor. NEURO: No focal deficits. Facial sensation intact. Grimace intact. Shoulder shrug and bilateral manager fiber strength equal. Alert and oriented x3. Gait steady. PSYCH: Normal affect. Course Course Emergency Course: Patient is aware of diagnosis, understands and agrees to treatment plan. Anticipatory guidance given. Patient agrees to follow-up as directed and is aware of reasons to seek care at the emergency department. Portions of this record may have been created with voice recognition software Level of Care: Express Care Visit Transfer Transfered to: [facility] Transportation: Other ( Private vehicle) Transfer rationale: Pt is agreeable to transfer. Requests transfer to [facility] via private vehicle. Risks of transportation reviewed with pt including injury, worsening of condition and . v/u. Report called to hospital, spoke with Torrie LORA, Dr Lucas, accepting physician. Pt is in stable condition at time of transfer. Advised to remain NPO and go directly to the hospital. MDM - Headache MDM Narrative Medical decision making narrative: Discussed physical exam findings. Shared decision making, pt states she will go to the ER for labs as she continues to have worsening headache for over 1.5 weeks. Differential Diagnosis Differential diagnosis: Likely migraine, tension headache, headache and sinusitis Discharge Plan Discharge Clinical Impression: Headache Patient Disposition: Acute Care Hospital Condition: Stable Instructions: Antibiotic Form Patient Language: Lithuanian Prescriptions: No Action drospirenone-ethinyl estradiol [Lo-Zumandimine (28)] 3-0.02 mg tablet Follow-up/Referrals: PHYSICIAN,LEAD SOFTWARE ARCHITECT [Primary Care Provider] - Time of Disposition: 10:53
--- OUTSIDE RECORDS SUMMARY | 2025-03-11 11:15 | XMS_ITS | Clinical Summary ---
Author Organization [facility] Address [address] [place] [address] Phone Care Team Providers Care Windrower Operator Name Role Phone Sarabjit Foster MD Unavailable Marysol De Leon PAC Primary Care Pro vider Allergies No known active allergies Medications Vestura 3-0.02 MG Tablet Take 1 Tablet by mouth daily. 02/07/2024 Active escitalopram (LEXAPRO) 10 MG Tablet TAKE 1 TABLET BY MOUTH EVERY DAY 90 Tablet 01/01/2025 Active Active Problems No known active problems Encounters Date Type Department Care Team Description 01/01/2025 Refill [facility] - [facility] [address] [place] [address] Marysol De Leon, PAC Medication Refill [...] drink = 0.6 oz pur e alcohol) [facility] Utilities Answer Date Recorded In the past 12 months has th e electric, gas, oil, or water [employer] threatened to shut off services in your home? No 04/05/2024 Social Connection and Isolation Panel Answer Date Recorded In a typical week, how many times do you talk on the phone with family, friends, or neighbors? More than three times a week 04/05/2024 How often do you get togethe r with friends or relatives? Once a week 04/05/2024 How often do you attend chur ch or episcopal services? Never 04/05/2024 Do you belong to any clubs o r organizations such as evangelical groups, unions, fraternal or athletic groups, or [...] Total Score - Questions 1-9 3 12/2023 [facility] - Occupational Stress [...] any time in the past 12 m [facility], were you homeless or living in a prison (including now)? No 04/05/2024 Sexually Active Control [...] 102 04/09/2024 12:55 PM CDT Temperature 36.7 C (98 F) 04/09/2024 12:55 PM CDT Respiratory Rate 12 04/05/2024 9:35 AM CDT Oxygen Saturation 98% 04/09/2024 12:55 PM CDT Inhaled Oxygen Concentration - - Weight 60.3 kg (133 lb) 04/09/2024 12:55 PM CDT Height 154.9 cm (5' 1) 04/09/2024 12:55 PM CDT Body Mass Index 25.13 04/09/2024 12:55 PM CDT Plan of Treatment Health Maintenance Due Date Last Done Comments Hepatitis C Virus (HCV) Screening 2002 Pap Smear 12/24/2023 SARS-COV-2 Immunization ( season) 2024 07/07/2021, 01/05/2021, 12/15/2020 Influenza Immunization (#1) 03/31/202505/31, 06/29/2020, 05/15/2019, Additional history exists Respiratory Syncytial Virus (RSV) Immunization (Adult) (1 [...] to complete this topic Insurance MEDICAID [employer] [facility] MEDICAID [employer] Care Teams Windrower Operator Relationship Specialty Start Date End Date Marysol De Leon PAC [address] [address] PCP - General Physician Strategic Communications Manager 04/05/24 Sarabjit Foster MD #[address] [address] Consulting Physician Colon and Rectal Surgery 04/03/24
--- OUTSIDE RECORDS SUMMARY | 2025-03-11 11:15 | XMS_ITS | Clinical Summary ---
Author Organization [facility] Address [address] [place] [address] Care Team Providers Care Chef De Partie Name Role Phone Unavailable Primary Care Provider Unavailabl e Source Comments [facility],non-owned Affiliates and Associated Physician Practices is amultiple site organization consisting of ambulatory clinics and hospital sitesin [place], [place], [place] and [place]. This disclosure is being madepursuant to the Care Everywhere program and may not contain all information available regarding this patient. Last updated 18.[facility] Allergies No known active allergies Medications * Be aware that medications may not be up to date on this document. Alwaysverify current medications with the patient. ibuprofen (MOTRIN) 200 MG tablet Take 400 [...] mouth 2 times daily 30 tablet 1 7 Active melatonin 3 MG tablet Take 1 tablet by mouth at bedtime 30 tablet 2 7 Active Active Problems Problem Noted Date Diagnosed Date Migraine 06/13/2017 Tension type headache 06/13/2017 Assessment & Plan (06/13/2017 3:08 PM [facility] [employer]): Jakub Hamilton is a 16 y.o. female with a [...] Years Used Date Smoking Tobacco: Never Assessed Comments Unknown Sex and Gender Information Value Date Recorded Sex Assigned at Not on file Legal Sex Female 1:58 PM CDT Gender Identity Not on file Sexual Orientation Not on file Last Filed Vital Signs Vital Sign Reading Time Taken Comments Blood Pressure 108/64 06/13/2017 12:41 PM [facility] [employer] Pulse 92 05/18/2017 12:44 PM CDT per pcp Temperature 36.4 C (97.5 F) 05/18/2017 12:44 PM CDT per pcp Respiratory Rate 16 05/18/2017 12:44 PM CDT per pcp Oxygen Saturation - - Inhaled Oxygen Concentration - - Weight 54.8 kg (120 lb 13 oz) 06/13/2017 12:41 P M [facility] [employer] [facility] Height 155.6 cm (5' 1.26) 06/13/2017 12:[address] Body Mass Index 22.63 06/13/2017 12:41 PM [employer] Plan of Treatment Health Maintenance Due Date Last Done Comments HIV SCREENING 2017 HPV VACCINE (1 - 3-dose series) 2017 CHLAMYDIA/GONORRHEA SCREENING 2018 MENINGOCOCCAL (Group B) VACC INE SHARED DECISION-MAKING (1 of 2 - Standard) 2018 HEPATITIS C SCREENING 12/18/2020 DTAP/TDAP/TD VACCINES (1 - Tdap) 2021 HEPATITIS B VACCINE (1 of 3 - 19+ 3-dose series) 2021 COVID-19 VACCINE (1 - 2023-2 5 season) 2024 DEPRESSION SCREENING 07/31/2024 INFLUENZA VACCINE (#1) 2025 ZOSTER VACCINE (1 of 2) 2052 HIB VACCINE Aged Out No longer eligi ble based on patient's age to complete this topic MENINGOCOCCAL GROUPS A/C/Y/W VACCINE Aged Out No longer eligible b ased on patient's age to complete this topic PNEUMOCOCCAL VACCINE Aged Out No long er eligible based on patient's age to complete this topic Insurance [facility] [place] [employer] [facility] [place] [employer]
== END 2025-03-11 10:48 | disposition short-term general hospital (02) ==
PROVIDERS: Emergency Provider Nurse Practitioner Family
DX: R51.9 Headache, unspecified (principal)
CPT/HCPCS: 99213; G0463